=== PATIENT | female | born 1985 | race Caucasian/White ===

== ENCOUNTER 2018-10-02 15:26 | Observation (INO) ==
[2018-10-02] MEDS ORDERED: Ipratropium/Albuterol Neb 3 ML IH ONE (16:19)
[2018-10-02] MEDS ORDERED: predniSONE 20 MG TABLET PO ONE (16:19)
[2018-10-02 16:40] LABS: Basophils % 0.2 %; Eosinophils % 0.1 %; Hematocrit 42.6 % (35.3-44.9); Hemoglobin 14.2 g/dL (11.5-15.4); Immature Granulocytes % 0.5 % (0-4); Lymphocytes # 2.4 K/mcL (0.6-4.6); Lymphocytes % 21.8 %; Mean Corpuscular HGB Conc 33.3 g/dL (31.6-35.5); Mean Corpuscular Hemoglobin 29.5 pg (28.0-33.3); Mean Corpuscular Volume 88.4 fL (83.0-100.0); Mean Platelet Volume 9.9 fL (9.4-12.4); Monocytes % 8.7 %; Neutrophils # 7.5 K/mcL (1.6-8.9); Platelet Count 300 K/mcL (140-400); Red Blood Count 4.82 M/mcL (3.82-4.97); Red Cell Distribution Width 12.8 % (11.5-14.5); Segmented Neutrophils % 68.7 %
--- NOTE | 2018-10-02 16:46 | Emergency Department Note ---
Disposition Clinical Impression: Hypoxia Pneumonia Qualifiers: Pneumonia type: due to unspecified organism Laterality: bilateral Lung location: lower lobe of lung Qualified Code(s): J18.1 - Lobar pneumonia, unspecified organism Disposition: Admitted As Inpatient Condition: Undetermined Referrals: Hernandez Mason MD [Primary Care Provider] - Forms: ED Satisfaction Letter SOB HPI - General Chief Complaint: ED Shortness of Breath/Dyspnea Stated Complaint: CITLALI Time Seen by Provider: 10/02/18 16:05 Source: patient Mode of arrival: ambulatory Limitations: no limitations Nursing Notes Reviewed: Yes Vital Signs Reviewed: Yes - History of Present Illness 33-year-old female smoker arrives to the emergency Department complaint shortness breath, cough, congestion, sore throat over the course the past 7 days. Patient states is progressively worsened when she decided come to the emergency department. Patient denies any chest pain, abdominal pain, nausea, vomiting, diarrhea, hemoptysis, unilateral leg swelling, history DVT or PE, recent surgeries or immobilizations. The patient's rest comfortably in the room with normal pulse oximetry. The patient was initially tachycardic patient states that she ambulated and is only checked her heart rate from anything from the car. Patient states she felt very short of breath that time but states that she is feeling much better she is been sitting still. Patient denies any other complaints at this time. - Related Data Previous Rx's Medication Instructions Recorded Ibuprofen [Motrin] 600 mg PO Q8HR #20 tab 08/04/16 Guaifenesin/Dm/Pseudoephedrine 1 each PO QID 10 Days #40 tablet 09/24/18 [Capmist Dm Tablet] Allergies Allergy/AdvReac Type Severity Reaction Status Date / Time No Known Allergies Allergy Verified 10/02/18 15:31 All systems ED: reviewed and negative except as stated. Constitutional: Reports: chills, weakness. Denies: fever Eyes: Denies: vision change ENT ED: Reports: throat pain, congestion Cardiovascular: Denies: chest pain Respiratory: Reports: cough, dyspnea, sputum production. Denies: wheezes Gastrointestinal: Denies: abdominal pain, nausea, vomiting Genitourinary: Denies: urgency, dysuria Musculoskeletal: Denies: back pain Integumentary: Denies: rash Neurological: Denies: headache Past Medical History - Past Medical History Attestation: Yes The following information was validated with the patient. Source: patient, old records reviewed Medical history: Reports: no medical history, other Surgical history: Reports: , cholecystectomy, orthopedic, other (3 ankle surgeries), other (tubal) Psychiatric history: Reports: no psych history [employer] history: Reports: bilateral tubal ligation - Social History Smoking Status: Current every day smoker Smokeless Tobacco Status: No Alcohol use: Reports: none Drug use: Reports: none Physical Exam - General Limitations: no limitations General appearance: alert, in no apparent distress - Head Head exam: atraumatic, normocephalic, normal inspection - Eye Eye exam: Present: normal appearance, PERRL, EOMI - ENT ENT exam: normal exam, normal oropharynx, mucous membranes moist - Neck Neck exam: Present: normal inspection, full ROM, trachea midline - Chest Chest inspection: Present: normal inspection, symmetric chest wall rise - Respiratory Respiratory exam: Present: wheezes (mild scattered expiratory wheeze) - Cardiovascular Cardiovascular exam: Present: normal rhythm, tachycardia, normal heart sounds - Abdominal Exam Abdominal exam: Present: soft, Non-Tender. Absent: tenderness, distention, guarding, rebound, rigidity - Extremities Exam Extremities exam: Present: normal inspection, full ROM. Absent: tenderness, pedal edema - Neurological Exam Neurological exam: Present: alert, oriented X3 - Skin Skin exam: Present: warm, dry, intact, normal color Course - Reevaluation(s) Reevaluation #1: Patient received breathing treatment in the emergency department and her O2 saturations dropped to 89%. The patient remains fairly tachypneic. The patient had an elevated d-dimer. We will likely admit the patient to the hospital this time. We started the patient on Rocephin as well as azithromycin. The patient will receive a CTA of the chest here in the emergency department. Admission pending CTA. Time: 17:31 Vital Signs Temperature 97.7 F 10/02/18 15:29 Pulse Rate 103 10/02/18 15:29 Respiratory Rate 24 10/02/18 15:29 Blood Pressure 117/77 10/02/18 15:29 O2 Sat by Pulse Oximetry 92 10/02/18 15:29 Temperature 97.7 F 10/02/18 16:43 Pulse Rate 93 10/02/18 19:29 Respiratory Rate 24 10/02/18 19:29 Blood Pressure 127/85 10/02/18 19:29 O2 Sat by Pulse Oximetry 92 10/02/18 19:29 Oxygen Delivery Oxygen Delivery Room Air Shortness of Breath/Dyspnea - MDM Narrative Medical decision making narrative: Patient's workup in the emergency department demonstrates findings consistent with multilobar pneumonia. The patient was started on azithromycin and Rocephin here in the emergency department. Lactic acid is within normal limits. CTA of the chest demonstrates no pulmonary embolus. The patient will be admitted to the hospital as she is hypoxic on room air and fairly tachypneic. Patient made aware and agrees to plan. No further questions or concerns noted this time. Accepted by Dr. Moran. - Lab Data Lab results reviewed: Yes I reviewed the patient's lab results. Result diagrams: 10/02/18 16:25 10/02/18 16:25 Lab Results 10/02/18 10/02/18 10/02/18 Range/Units 16:23 16:25 16:25 WBC 10.9 (4.3-11.1) K/mcL RBC 4.82 (3.82-4.97) M/mcL Hgb 14.2 (11.5-15.4) g/dL Hct 42.6 (35.3-44.9) % MCV 88.4 (83.0-100.0) fL MCH 29.5 (28.0-33.3) pg MCHC 33.3 (31.6-35.5) g/dL RDW 12.8 (11.5-14.5) % Plt Count 300 (140-400) K/mcL MPV 9.9 (9.4-12.4) fL Immature Gran % 0.5 (0-4) % Seg Neutrophils % 68.7 % Lymphocytes % 21.8 % Monocytes % 8.7 % Eosinophils % 0.1 % Basophils % 0.2 % Neutrophils # 7.5 (1.6-8.9) K/mcL Lymphocytes # 2.4 (0.6-4.6) K/mcL Monocytes # 1.0 (0.0-1.3) K/mcL Eosinophils # 0.0 (0.0-0.6) K/mcL Basophils # 0.0 (0.0-0.2) K/mcL Reactive Lymphocytes Present A (Not Present) D-Dimer 579 H (0-500) ng/mLFEU Sodium 134 L (136-145) mEq/L Potassium 3.3 L (3.5-5.1) mEq/L Chloride 99 (98-107) mEq/L Carbon Dioxide 24 (23-29) mEq/L BUN 8 (6-20) mg/dL Creatinine 0.56 L (0.60-1.20) mg/dL Est GFR ( Amer) > 60 (> 60) Est GFR (Non-Af Amer) > 60 (> 60) BUN/Creatinine Ratio 14 (6-26) Glucose 105 (70-105) mg/dL Calculated Osmolality 277 L (280-300) Lactic Acid (0.5-2.2) mmol/L Calcium 8.6 (8.6-10.3) mg/dL Troponin I < 0.03 (< 0.04) ng/mL 10/02/18 Range/Units 18:01 WBC (4.3-11.1) K/mcL RBC (3.82-4.97) M/mcL Hgb (11.5-15.4) g/dL Hct (35.3-44.9) % MCV (83.0-100.0) fL MCH (28.0-33.3) pg MCHC (31.6-35.5) g/dL RDW (11.5-14.5) % Plt Count (140-400) K/mcL MPV (9.4-12.4) fL Immature Gran % (0-4) % Seg Neutrophils % % Lymphocytes % % Monocytes % % Eosinophils % % Basophils % % Neutrophils # (1.6-8.9) K/mcL Lymphocytes # (0.6-4.6) K/mcL Monocytes # (0.0-1.3) K/mcL Eosinophils # (0.0-0.6) K/mcL Basophils # (0.0-0.2) K/mcL Reactive Lymphocytes (Not Present) D-Dimer (0-500) ng/mLFEU Sodium (136-145) mEq/L Potassium (3.5-5.1) mEq/L Chloride (98-107) mEq/L Carbon Dioxide (23-29) mEq/L BUN (6-20) mg/dL Creatinine (0.60-1.20) mg/dL Est GFR ( Amer) (> 60) Est GFR (Non-Af Amer) (> 60) BUN/Creatinine Ratio (6-26) Glucose (70-105) mg/dL Calculated Osmolality (280-300) Lactic Acid 0.8 (0.5-2.2) mmol/L Calcium (8.6-10.3) mg/dL Troponin I (< 0.04) ng/mL - Radiology Data Radiology results reviewed: Yes I reviewed the patient's radiology results. Chest X-Ray 10/02/18 15:33 IMPRESSION: Bilateral lower lobe infiltrates suggesting a multifocal pneumonia D/ / Weston Perez MD / Weston Perez MD Interpreting Provider: Weston Perez MD Chest CTA 10/02/18 17:30 IMPRESSION: No evidence of pulmonary embolism. Scattered centrilobular nodules and small patchy consolidations in the bilateral lungs, likely related to pneumonia. D/ / Jose Manuel Tena MD / Jose Manuel Tena MD Interpreting Provider: Jose Manuel Tena MD - EKG Data EKG attestation: Yes I reviewed and interpreted this EKG. EKG results narrative: Heart rate 102 beats for minute. Sinus tachycardia. No ST elevation or ST depression noted. No acute changes exception of sinus tachycardia. Attestation Statement - Attestation Attestation: Resident Attestation: I examined this patient and my medical decision making was reviewed with the Resident Physician. I agree with the documented findings, disposition and treatment plan as described except to the extent set forth below. We independently had [id number] contact with the patient. Patient presents to ED for evaluation of worsening shortness of breath. Patient is diagnosed the cold last week. Patient is had 3 days of worsening cough and difficulty with breathing specifically with exertion. Patient does smoke. Has not been diagnosed COPD. The stone previously required inhalers. Mild tachypnea, associated wheezing to anterior lung durant, regular rhythm, tachycardia,and peripheral edema, abdomen soft nontender palpation without guarding or rebound. Evaluation for possible pneumonia. Breathing treatments and by mouth steroids given secondary to wheezing. Patient reevaluated and found to be 88% wall resting in bed without oxygen. Patient was placed on 2 L. CTA is pending. Patient will likely require admission secondary to hypoxia and pneumonia.
[2018-10-02 17:01] LABS: BUN/Creatinine Ratio 14 (6-26); Blood Urea Nitrogen 8 mg/dL (6-20); Calcium 8.6 mg/dL (8.6-10.3); Carbon Dioxide 24 mEq/L (23-29); Chloride 99 mEq/L (98-107); Glucose 105 mg/dL (70-105); Osmolality,Calculated 277 (280-300); Potassium 3.3 mEq/L (3.5-5.1); Sodium 134 mEq/L (136-145); eGFR For Non-African Americans > 60 (> 60)
[2018-10-02 17:02] LABS: Troponin I < 0.03 ng/mL (< 0.04)
[2018-10-02 17:04] LABS: Reactive Lymphocytes Present (Not Present)
[2018-10-02] MEDS ORDERED: Azithromycin 500 MG in D5% in Water 250 ML IVPB ONE (17:25)
[2018-10-02] MEDS ORDERED: cefTRIAXone 1,000 MG in Water for inj. (sterile) 20 ML 10 ML IVP ONE (17:25)
[2018-10-02] MEDS ORDERED: Isovue-370 500 ML INFUS..BTL IV ONE (17:30)
--- NOTE | 2018-10-02 21:35 | Internal Med History&Physical ---
Date of Encounter: 10/02/18 Time of Encounter: 21:33 Internal Medicine - H&P: HPI Chief complaint: SOB Admitted From: Home Plans for Post Hospital Care: Home History of present illness: Jaja Pinedo is a 33-year-old woman who reports no past medical history other than being an active smoker who comes emergency room complaining of over 1 week of upper respiratory symptoms as noted by poorly productive cough, sore throat, chest congestion and soreness, rhinorrhea and now difficulty breathing. She denied fever but reports having felt some chills. The emergency room she was noted to be slightly tachycardic and hypoxic on room air requiring supplemental oxygen initially. CT scan was done with findings concerning for multifocal patchy airspace disease as per my review. She was started on ceftriaxone and azithromycin and is now admitted for further care. On my assessment she states she feels somewhat better has no complaints at this time. She admits to smoking about less than a pack daily; stopped last week when she started feeling ill. 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 She reports her children at home also had URI symptoms around the same time hers started but they improved while she continued to progress till today. Past Med Surg Social Fam HX - Past Medical History Medical history: no medical history, other Psychiatric history: no psych history - Past Surgical History Surgical History: , cholecystectomy, orthopedic, other (3 ankle surgeries), other (tubal) Additional surgical history: right ankle surgery x3, 2 c-sections - Social History Smoking Status: Current every day smoker Smokeless Tobacco Status: No Alcohol use: none Drug use: none Internal Medicine - H&P: Meds No Known Home Drugs 10/02/18 [History] Allergy/AdvReac Type Severity Reaction Status Date / Time No Known Allergies Allergy Verified 10/02/18 15:31 All Systems PM: A 10-system review of systems was performed and is negative for pertinent findings except as documented above in the HPI. Family history reviewed and found noncontributory. - Constitutional Vitals: Temp Pulse Resp BP Pulse Ox 97.7 F 93 23 132/79 94 10/02/18 16:43 10/02/18 20:38 10/02/18 20:38 10/02/18 20:38 10/02/18 20:38 Exam: Vitals: Reviewed General: Obese white female lying comfortably in bed in no acute distress. Skin: Warm and supple. HEENT: Moist mucous membranes. No conjunctivae pallor. Neck: No lymphadenopathy. No JVD. No carotid bruits. No palpable thyroid. Chest: Normal thoracic expansion. Reduced breath sounds in both lung durant with fine raised auscultated in the right lung base. Heart: Normal S1 & S2; rhythmic. No rubs or murmurs. Abdomen: Non-distended, soft and non-tender to palpation. No peritoneal reaction. Extremities: No clubbing, cyanosis or edema. No calf tenderness. Normal distal pulses. Neurological: Awake, alert and oriented to person, place and time. No focal deficits. Psych: Affect appropriate. Internal Med - H&P Results - Labs CBC & Chem 7: 10/02/18 16:25 10/02/18 16:25 Labs: Short CBC 10/02/18 Range/Units 16:25 WBC 10.9 (4.3-11.1) K/mcL Hgb 14.2 (11.5-15.4) g/dL Hct 42.6 (35.3-44.9) % Plt Count 300 (140-400) K/mcL Neutrophils # 7.5 (1.6-8.9) K/mcL BMP 10/02/18 16:25 Sodium 134 L Potassium 3.3 L Chloride 99 Carbon Dioxide 24 BUN 8 Creatinine 0.56 L Glucose 105 Calcium 8.6 Cardiac Enzymes 10/02/18 Range/Units 16:25 Troponin I < 0.03 (< 0.04) ng/mL - Impressions ITS Impressions Chest X-Ray 10/02/18 15:33 IMPRESSION: Bilateral lower lobe infiltrates suggesting a multifocal pneumonia D/ / Weston Perez MD / Weston Perez MD Interpreting Provider: Weston Perez MD Chest CTA 10/02/18 17:30 IMPRESSION: No evidence of pulmonary embolism. Scattered centrilobular nodules and small patchy consolidations in the bilateral lungs, likely related to pneumonia. 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 Therefore in addition to the ceftriaxone/azithromycin started, will give 1 dose of vancomycin empirically. There is a risk of viral illness leading to superimposed bacterial pneumonias which appears to be the case. Send urine Legionella antigen and if she is able to expectorate, obtain sputum for culture. Provide symptomatic relief with nebulizer therapy overnight. Check MRSA surveillance screen. (2) Acute respiratory failure with hypoxia Current Visit: Yes Status: Acute Assessment and plan: Secondary to pneumonic process. Will provide supplemental oxygen as needed and monitor with oximetry. (3) Smoker Current Visit: Yes Status: Acute Assessment and plan: Counseled and resources made available. (4) DVT prophylaxis Current Visit: Yes Status: Acute Assessment and plan: Subcutaneous heparin ordered. - Time Spent With Patient Total time spent is greater than 50% in coordination of care (as documented) at patient's floor/unit and/or counseling patient: Greater than 35 minutes
[2018-10-02] MEDS: Ipratropium/Albuterol Neb 3 ML IH SCH (22:16)
[2018-10-02] MEDS: Ringers Solution, Lactated 1,000 ML IVC SCH (23:04)
[2018-10-03] MEDS: Ipratropium/Albuterol Neb 3 ML IH SCH ×5 (03:43→23:56)
[2018-10-03] MEDS: *HR* Heparin 5,000 UNIT/ML VIAL SQ SCH ×2 (05:29→17:23)
[2018-10-03] MEDS: GuaiFENesin Liq 200 MG/10 ML UDC PO PRN ×2 (05:34→19:15)
[2018-10-03] MEDS: Ringers Solution, Lactated 1,000 ML IVC SCH (08:57)
[2018-10-03] MEDS: cefTRIAXone 1,000 MG in 0.9 % Sodium Chloride Mini Bag 100 ML IVPB SCH (08:58)
[2018-10-03] MEDS: Azithromycin 500 MG in D5% in Water 250 ML IVPB SCH (08:58)
--- NOTE | 2018-10-03 11:18 | Internal Med Progress Note ---
Hospitalist Progress Note - Encounter Date of Encounter: 10/03/18 Time of Encounter: 11:17 - Subjective Interval History: patient seen and examined at bedside- Does not appear to be in any resp distress at this time- Denies any CP or SOB - Exam Vitals: Temp Pulse Resp BP Pulse Ox 98.1 F 74 18 116/80 93 10/03/18 07:34 10/03/18 07:34 10/03/18 07:34 10/03/18 07:34 10/03/18 08:45 Exam: Vitals: Reviewed General: Obese white female lying comfortably in bed in no acute distress. Skin: Warm and supple. HEENT: Moist mucous membranes. No conjunctivae pallor. Neck: No lymphadenopathy. No JVD. No carotid bruits. No palpable thyroid. Chest: Normal thoracic expansion. Reduced breath sounds in both lung durant with fine rales auscultated in the right lung base. Faint expiratory wheeze Heart: Normal S1 & S2; rhythmic. No rubs or murmurs. Abdomen: Non-distended, soft and non-tender to palpation. No peritoneal reaction. Extremities: No clubbing, cyanosis or edema. No calf tenderness. Normal distal pulses. Neurological: Awake, alert and oriented to person, place and time. No focal deficits. Psych: Affect appropriate. - Assessment and Plan (1) Acute respiratory failure with hypoxia Current Visit: Yes Status: Acute Assessment and Plan: Secondary to pneumonic process. Will provide supplemental oxygen as needed and monitor with oximetry. 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 Therefore in addition to the ceftriaxone/azithromycin started, will give 1 dose of vancomycin empirically. There is a risk of viral illness leading to superimposed bacterial pneumonias which appears to be the case. Send urine Legionella antigen and if she is able to expectorate, obtain sputum for culture. Provide symptomatic relief with nebulizer therapy overnight. Check MRSA surveillance screen. 10/03/2018 MRSA swab negative Legionella negative Influenza negative will check RIP cont with Ceftriaxone /azithromycin cont with duonebs- will give a steroid burst (3) Smoker Current Visit: Yes Status: Acute Assessment and Plan: Counseled and resources made available. (4) DVT prophylaxis Current Visit: Yes Status: Acute Assessment and Plan: Subcutaneous heparin ordered. - Time Spent with Patient Total time spent is greater than 50% in coordination of care (as documented) at patient's floor/unit and/or counseling patient: Internal Medicine: Result - Labs CBC & Chem 7: 10/02/18 16:25 10/02/18 16:25 Labs: Short CBC 10/02/18 Range/Units 16:25 WBC 10.9 (4.3-11.1) K/mcL Hgb 14.2 (11.5-15.4) g/dL Hct 42.6 (35.3-44.9) % Plt Count 300 (140-400) K/mcL Neutrophils # 7.5 (1.6-8.9) K/mcL BMP 10/02/18 16:25 Sodium 134 L Potassium 3.3 L Chloride 99 Carbon Dioxide 24 BUN 8 Creatinine 0.56 L Glucose 105 Calcium 8.6 Cardiac Enzymes 10/02/18 Range/Units 16:25 Troponin I < 0.03 (< 0.04) ng/mL - ABG Interpretation ABG results: PT/INR, D-dimer D-Dimer 579 ng/mLFEU (0-500) H 10/02/18 16:23 - Impressions Impressions Chest X-Ray 10/02/18 15:33 IMPRESSION: Bilateral lower lobe infiltrates suggesting a multifocal pneumonia D/ / Weston Perez MD / Weston Perez MD Interpreting Provider: Weston Perez MD Chest CTA 10/02/18 17:30 IMPRESSION: No evidence of pulmonary embolism. Scattered centrilobular nodules and small patchy consolidations in the bilateral lungs, likely related to pneumonia. D/ / Jose Manuel Tena MD / Jose Manuel Tena MD Interpreting Provider: Jose Manuel Tena MD Consult Discharge Plan - Plan Referrals: Hernandez Mason MD [Primary Care Provider] -
[2018-10-03 16:57] LABS: Adenovirus Not Detected (Not Detect); Bordetella Pertussis Not Detected (Not Detect); Chlamydophila pneumoniae Not Detected (Not Detect); Coronavirus 229E Not Detected (Not Detect); Coronavirus HKU1 Not Detected (Not Detect); Coronavirus NL63 Not Detected (Not Detect); Coronavirus OC43 Not Detected (Not Detect); Human Metapneumovirus Not Detected (Not Detect); Human Rhinovirus/Enterovirus Not Detected (Not Detect); Influenza A Subtype 2009 H1 Not Detected (Not Detect); Influenza A Untypeable Not Detected (Not Detect); Influenza B Not Detected (Not Detect); Mycoplasma pneumoniae Not Detected (Not Detect); Parainfluenza Virus 1 Not Detected (Not Detect); Parainfluenza Virus 2 Not Detected (Not Detect); Parainfluenza Virus 3 Not Detected (Not Detect); Parainfluenza Virus 4 Not Detected (Not Detect); Respiratory Syncytial Virus Not Detected (Not Detect)
[2018-10-03] MEDS ORDERED: Aminoglycoside Consult 1 EACH MC ONE (20:36)
[2018-10-04] MEDS: Ipratropium/Albuterol Neb 3 ML IH SCH ×5 (04:06→19:31)
[2018-10-04 04:13] LABS: Basophils % 0.2 %; Eosinophils % 0.1 %; Hematocrit 37.5 % (35.3-44.9); Immature Granulocytes % 0.9 % (0-4); Lymphocytes # 2.5 K/mcL (0.6-4.6); Lymphocytes % 29.2 %; Mean Corpuscular Hemoglobin 28.5 pg (28.0-33.3); Mean Corpuscular Volume 89.1 fL (83.0-100.0); Mean Platelet Volume 9.5 fL (9.4-12.4); Monocytes # 0.9 K/mcL (0.0-1.3); Monocytes % 10.6 %; Neutrophils # 5.1 K/mcL (1.6-8.9); Platelet Count 374 K/mcL (140-400); Red Blood Count 4.21 M/mcL (3.82-4.97); Red Cell Distribution Width 12.9 % (11.5-14.5)
[2018-10-04 04:29] LABS: BUN/Creatinine Ratio 16 (6-26); Blood Urea Nitrogen 10 mg/dL (6-20); Calcium 8.2 mg/dL (8.6-10.3); Carbon Dioxide 24 mEq/L (23-29); Chloride 111 mEq/L (98-107); Glucose 133 mg/dL (70-105); Osmolality,Calculated 295 (280-300); Potassium 3.1 mEq/L (3.5-5.1); Sodium 142 mEq/L (136-145); eGFR For Non-African Americans > 60 (> 60)
[2018-10-04 04:41] LABS: Platelet Estimate Normal (Normal); Reactive Lymphocytes Present (Not Present)
[2018-10-04] MEDS: *HR* Heparin 5,000 UNIT/ML VIAL SQ SCH ×2 (05:44→18:38)
[2018-10-04] MEDS ORDERED: predniSONE 20 MG TABLET PO SCH (09:00)
[2018-10-04] MEDS: cefTRIAXone 1,000 MG in 0.9 % Sodium Chloride Mini Bag 100 ML IVPB SCH (09:24)
[2018-10-04] MEDS: Azithromycin 500 MG in D5% in Water 250 ML IVPB SCH (09:25)
--- NOTE | 2018-10-04 11:36 | Internal Med Progress Note ---
Hospitalist Progress Note - Encounter Date of Encounter: 10/04/18 Time of Encounter: 11:36 - Subjective Interval History: patient seen and examined at bedside- patient appears to be in mild respiratory distress. She states she just walked back from the bathroom. Oxygen saturations are around 91-92% on room air-she does require oxygen supplementation and sats do improve to 98% on 2 L nasal cannula. - Exam Vitals: Temp Pulse Resp BP Pulse Ox 98.1 F 89 16 121/80 99 10/04/18 07:40 10/04/18 07:40 10/04/18 08:07 10/04/18 07:40 10/04/18 08:07 Exam: Vitals: Reviewed General: Obese white female lying comfortably in bed in no acute distress. Skin: Warm and supple. HEENT: Moist mucous membranes. No conjunctivae pallor. Neck: No lymphadenopathy. No JVD. No carotid bruits. No palpable thyroid. Chest: Normal thoracic expansion. Reduced breath sounds in both lung durant with fine rales auscultated in the right lung base. Faint expiratory wheeze Heart: Normal S1 & S2; rhythmic. No rubs or murmurs. Abdomen: Non-distended, soft and non-tender to palpation. No peritoneal reaction. Extremities: No clubbing, cyanosis or edema. No calf tenderness. Normal distal pulses. Neurological: Awake, alert and oriented to person, place and time. No focal defi cits. Psych: Affect appropriate. - Assessment and Plan (1) Acute respiratory failure with hypoxia Current Visit: Yes Status: Acute Assessment and Plan: Secondary to pneumonic process. Will provide supplemental oxygen as needed and monitor with oximetry. 10/03/2018 cont with oxygen as neede to maintain Spo2> 92% encourage patient to stop smoking 10/04/2018 Secondary to pneumonia-possible COPD component since patient is a smoker however she has never been diagnosed with COPD Patient appeared to be in mild respiratory distress this morning after ambulatin g to the bathroom. 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 Therefore in addition to the ceftriaxone/azithromycin started, will give 1 dose of vancomycin empirically. There is a risk of viral illness leading to superimposed bacterial pneumonias which appears to be the case. Send urine Legionella antigen and if she is able to expectorate, obtain sputum for culture. Provide symptomatic relief with nebulizer therapy overnight. Check MRSA surveillance screen. 10/03/2018 MRSA swab negative Legionella negative Influenza negative will check RIP cont with Ceftriaxone /azithromycin cont with duonebs- will give a steroid burst 10/04/2018 Versus all negative Legionella negative influenza negative respiratory infection panel was completed which was negative Continue with ceftriaxone and azithromycin Continue with DuoNeb's I will start patient on IV steroids overnight and monitor Obtain sputum culture (3) Smoker Current Visit: Yes Status: Acute Assessment and Plan: Counseled and resources made available. (4) DVT prophylaxis Current Visit: Yes Status: Acute Assessment and Plan: Subcutaneous heparin ordered. - Time Spent with Patient Total time spent is greater than 50% in coordination of care (as documented) at patient's floor/unit and/or counseling patient: Internal Medicine: Result - Labs CBC & Chem 7: 10/04/18 03:45 10/04/18 03:45 Labs: Short CBC 10/04/18 Range/Units 03:45 WBC 8.6 (4.3-11.1) K/mcL Hgb 12.0 D (11.5-15.4) g/dL Hct 37.5 (35.3-44.9) % Plt Count 374 (140-400) K/mcL Neutrophils # 5.1 (1.6-8.9) K/mcL BMP 10/04/18 03:45 Sodium 142 Potassium 3.1 L Chloride 111 H Carbon Dioxide 24 BUN 10 Creatinine 0.61 Glucose 133 H Calcium 8.2 L - ABG Interpretation ABG results: PT/INR, D-dimer D-Dimer 579 ng/mLFEU (0-500) H 10/02/18 16:23 Consult Discharge Plan - Plan Referrals: Hernandez Mason MD [Primary Care Provider] -
[2018-10-04] MEDS ORDERED: methylPREDNISolone 125 MG/2 ML VIAL IVP SCH (12:00)
--- NOTE | 2018-10-04 14:57 | Electrocardiograph Report ---
[address] [place], [place] [address] Test Date: 2018-10-02 Pat Name: Jaja Pinedo Department: 104 Room: 3B Gender: F Vender: RYLEY : 1985 Requested By: Chad Montano Order Number: [id number] Reading MD: Toney Miller Measurements Intervals Lulu Rate: 102 P: 59 MD: 133 QRS: 57 QRSD: 78 T: 53 QT: 338 QTc: 396 Interpretive Statements SINUS TACHYCARDIA Electronically Signed On 10-04-2018 14:55:51 EST by Toney Miller
[2018-10-04] MEDS ORDERED: Potassium Chloride 40 MEQ, Lidocaine 1% 2 ML in D5% in Water 500 ML IVPB ONE (18:41)
[2018-10-04] MEDS: methylPREDNISolone 125 MG/2 ML VIAL IVP SCH ×2 (18:43→23:46)
[2018-10-05] MEDS: Ipratropium/Albuterol Neb 3 ML IH SCH ×5 (00:29→15:46)
[2018-10-05] MEDS ORDERED: Acetaminophen 325 MG TABLET PO PRN (00:45)
[2018-10-05 05:40] LABS: Basophils % 0.3 %; Hematocrit 37.5 % (35.3-44.9); Hemoglobin 12.4 g/dL (11.5-15.4); Immature Granulocytes % 5.8 % (0-4); Lymphocytes % 14.8 %; Mean Corpuscular HGB Conc 33.1 g/dL (31.6-35.5); Mean Corpuscular Hemoglobin 29.4 pg (28.0-33.3); Mean Corpuscular Volume 88.9 fL (83.0-100.0); Mean Platelet Volume 9.9 fL (9.4-12.4); Monocytes # 0.2 K/mcL (0.0-1.3); Monocytes % 2.8 %; Neutrophils # 5.2 K/mcL (1.6-8.9); Platelet Count 413 K/mcL (140-400); Red Blood Count 4.22 M/mcL (3.82-4.97); Segmented Neutrophils % 76.3 %
[2018-10-05] MEDS: *HR* Heparin 5,000 UNIT/ML VIAL SQ SCH (05:42)
[2018-10-05] MEDS: methylPREDNISolone 125 MG/2 ML VIAL IVP SCH (05:42)
[2018-10-05 05:57] LABS: BUN/Creatinine Ratio 19 (6-26); Blood Urea Nitrogen 10 mg/dL (6-20); Calcium 9.1 mg/dL (8.6-10.3); Carbon Dioxide 23 mEq/L (23-29); Chloride 105 mEq/L (98-107); Glucose 215 mg/dL (70-105); Osmolality,Calculated 290 (280-300); Potassium 3.6 mEq/L (3.5-5.1); Sodium 137 mEq/L (136-145); eGFR For Non-African Americans > 60 (> 60)
[2018-10-05] MEDS: cefTRIAXone 1,000 MG in 0.9 % Sodium Chloride Mini Bag 100 ML IVPB SCH (09:42)
[2018-10-05] MEDS: Azithromycin 500 MG in D5% in Water 250 ML IVPB SCH (09:44)
[2018-10-05] MEDS ORDERED: Nicotine 21 MG PATCH.TD24 TD SCH (09:45)
--- NOTE | 2018-10-05 11:59 | Internal Med Progress Note ---
<Christopher Bynum P - Last Filed: 10/05/18 15:45> Hospitalist Progress Note - Encounter Date of Encounter: 10/05/18 Time of Encounter: 09:45 - Subjective Interval History: This is 33-year-old woman who is an active smoker comes to emergency room complaining of upper respiratory symptoms as noted by poorly productive cough, sore throat, chest congestion and soreness, rhinorrhea and now difficulty breathing , she was slightly tachycardic and hypoxic on room air requiring supplemental oxygen initially. She was not febrile but feeling chills.CT chest: No evidence of pulmonary embolism. scattered centrilobular nodules and small patchy consolidations in the bilateral lungs, likely related to pneumonia. Xray chest: Bilateral lower lobe infiltrates suggesting a multifocal pneumonia . Labs done in ED: Total white cell count was negative nasal MRSA was negative, all respi panel including Chlamydia pneumoniae was negative. The patient was admitted in inpatient with IV antibiotic azithromycin, ceftriaxone, Solu-Medrol , DuoNeb nebulization . Today during my bedside visit the patient was lying comfortably on the bed , she was not tachypneic while she was lying on the bed , she admitted dry cough but better than before, she further stated that she does have wheezing//shortness of breath while she walk a few meters. Her vitals are stable she is not febrile for last 24 hours. - Exam Vitals: Temp Pulse Resp BP Pulse Ox 97.8 F 79 16 151/85 89 10/05/18 07:53 10/05/18 07:53 10/05/18 07:32 10/05/18 07:53 10/05/18 07:53 Exam: General: Obese white female lying comfortably in bed in no acute distress. Skin: Warm and supple. HEENT: Moist mucous membranes. No conjunctivae pallor. Neck: No lymphadenopathy. No JVD. No carotid bruits. No palpable thyroid. Chest: Normal thoracic expansion. Reduced breath sounds in both lung durant with fine rales auscultated in the right lung base. Faint expiratory wheeze Heart: Normal S1 & S2; rhythmic. No rubs or murmurs. Abdomen: Non-distended, soft and non-tender to palpation. No peritoneal reaction. Extremities: No clubbing, cyanosis or edema. No calf tenderness. Normal distal pulses. Neurological: Awake, alert and oriented to person, place and time. No focal deficits. Psych: Affect appropriate. - Assessment and Plan (1) Multifocal pneumonia Current Visit: Yes Status: Acute Assessment and Plan: The patient has productive cough, trouble breathing, sore throat while she reported to hospital, exam finding : Expiratory wheezes with diminished breath sounds especially lower zones. Xray chest:Bilateral lower lobe infiltrates suggesting a multifocal pneumonia Ct chesT;Scattered centrilobular nodules and small patchy consolidations in the bilateral lungs, likely related to pneumonia. She was on 2 L oxygen, now she is on room air with saturation 90%. She is on IV antibiotic ceftriaxone, azithromycin, continuing nebulization with DuoNeb She was on Solu-Medrol and weekends to oral prednisone. Symptomatically improved compared to before. (2) Acute respiratory failure with hypoxia Current Visit: Yes Status: Acute Assessment and Plan: The patient is chronic smoker, presented with shortness of breath with minimal exertion and dry cough. She was not on home oxygen before. X-ray and CT chest showed multifocal pneumonia, that might be the cause of aggravated shortness of breath and hypoxia. Her sat was 92% with 2 L oxygen after admission. With IV antibiotic and resolution of the pneumonia, her symptom hypoxia has been getting better. (3) Smoker Current Visit: Yes Status: Acute Assessment and Plan: Recent is chronic smoker, smokes 1 pack per day, we have put nicotine patch and counseled about quitting smoking . (4) DVT prophylaxis Current Visit: Yes Status: Acute Assessment and Plan: She is on heparin 5000 units SQ 12hrly for DVT prophylaxis. - Time Spent with Patient Total time spent is greater than 50% in coordination of care (as documented) at patient's floor/unit and/or counseling patient: Internal Medicine: Result - Labs CBC & Chem 7: 10/05/18 04:10 10/05/18 04:10 Labs: Short CBC 10/05/18 Range/Units 04:10 WBC 6.8 (4.3-11.1) K/mcL Hgb 12.4 (11.5-15.4) g/dL Hct 37.5 (35.3-44.9) % Plt Count 413 H (140-400) K/mcL Neutrophils # 5.2 (1.6-8.9) K/mcL BMP 10/05/18 04:10 Sodium 137 Potassium 3.6 Chloride 105 Carbon Dioxide 23 BUN 10 Creatinine 0.53 L Glucose 215 H Calcium 9.1 - ABG Interpretation ABG results: PT/INR, D-dimer D-Dimer 579 ng/mLFEU (0-500) H 10/02/18 16:23 Consult Discharge Plan - Plan Referrals: Hernandez Mason MD [Primary Care Provider] - 10/14/18 3:30 pm Prescriptions: RX: Albuterol Sulfate [Proair Respiclick] 2 puff IH BID #1 aer.pow.ba RX: Azithromycin [Zithromax] 250 mg PO DAILY #2 tablet Cephalexin [Keflex] 500 mg PO TID #9 capsule RX: Nicotine Patch [Nicoderm] 21 mg TD DAILY #30 patch.td24 RX: predniSONE [PredniSONE] 40 mg PO BIDWM #18 tablet <Erik Medina - Last Filed: 10/05/18 16:10> Hospitalist Progress Note - Encounter Date of Encounter: 10/05/18 - Exam Vitals: Temp Pulse Resp BP Pulse Ox 97.6 F 77 15 151/82 92 10/05/18 15:36 10/05/18 15:36 10/05/18 15:36 10/05/18 15:36 10/05/18 15:36 - Assessment and Plan (1) Acute respiratory failure with hypoxia Current Visit: Yes Status: Acute (2) Reactive airway disease Current Visit: Yes Status: Acute (3) Multifocal pneumonia Current Visit: Yes Status: Acute (4) Smoker Current Visit: Yes Status: Acute (5) DVT prophylaxis Current Visit: Yes Status: Acute - Time Spent with Patient Total time spent is greater than 50% in coordination of care (as documented) at patient's floor/unit and/or counseling patient: Internal Medicine: Result - Labs CBC & Chem 7: 10/05/18 04:10 10/05/18 04:10 Labs: Short CBC 10/05/18 Range/Units 04:10 WBC 6.8 (4.3-11.1) K/mcL Hgb 12.4 (11.5-15.4) g/dL Hct 37.5 (35.3-44.9) % Plt Count 413 H (140-400) K/mcL Neutrophils # 5.2 (1.6-8.9) K/mcL BMP 10/05/18 04:10 Sodium 137 Potassium 3.6 Chloride 105 Carbon Dioxide 23 BUN 10 Creatinine 0.53 L Glucose 215 H Calcium 9.1 - ABG Interpretation ABG results: PT/INR, D-dimer D-Dimer 579 ng/mLFEU (0-500) H 10/02/18 16:23 - Attending Attestation I examined this patient and my medical decision-making was reviewed with the Resident Physician Dr. Bynum. I agree with the documented findings, disposition and treatment plan as described except to the extent set forth below. Ms. Pinedo is a 33 year old female who reports no past medical history other than being an active smoker who comes emergency room complaining of over 1 week of upper respiratory symptoms as noted by productive cough, sore throat, chest congestion and soreness. She did complaining about progressively worsening shortness of breath. CT scan was done with findings concerning for multifocal patchy airspace disease . Patient was admitted in the hospital and started on ceftriaxone and azithromycin. She did have acute hypoxic respiratory failure initially due to pneumonia. She also have diffuse wheezing due to reactive airway disease triggered by pneumonia. Patient was placed on high-dose IV steroids initially and required 2 lit O2 too. Now patient is off the oxygen and breathing comfortably on room air. We started tapering down her steroids. I did check ambulating pulse oxy which came back as 94 % on RA. So will d/c her home in stable condition today with PO abx and PO steroids. I did activities counselor the patient to quit smoking. Chest: Moderate wheezing, Diminished BS b/l, No crackles, no rales ____ <Erik Medina - Last Filed: 10/05/18 16:10> (2) Reactive airway disease Qualifiers: Asthma severity: mild Asthma persistence: intermittent Asthma complication type: with acute exacerbation Qualified Code(s): J45.21 - Mild intermittent asthma with (acute) exacerbation
[2018-10-05 15:40] VITALS: BP 151/82
--- NOTE | 2018-10-05 15:41 | Discharge Summary ---
- NOTES TO OUTPATIENT PROVIDER Notes to Outpatient Provider: Follow up with PCP in one week. Please quit smoking tobacco. Orders not resulted at time of discharge: Pending orders 10/02/18 18:01 Culture,Blood [BC] Stat 10/04/18 11:31 Sputum Culture [Culture,Sputum with Gram Stain] [] Routine Date of Encounter: 10/05/18 Time of Encounter: 15:36 - Discharge Diagnosis (1) Acute respiratory failure with hypoxia Priority: Primary Status: Acute (2) Reactive airway disease Priority: Primary Status: Acute Qualifiers: Asthma severity: mild Asthma persistence: intermittent Asthma complication type: with acute exacerbation Qualified Code(s): J45.21 - Mild intermittent asthma with (acute) exacerbation (3) Multifocal pneumonia Priority: Primary Status: Acute (4) Smoker Priority: Secondary Status: Acute (5) DVT prophylaxis Priority: Secondary Status: Acute Hospital course: Ms. Pinedo is a 33 year old female who reports no past medical history other than being an active smoker who comes emergency room complaining of over 1 week of upper respiratory symptoms as noted by productive cough, sore throat, chest congestion and soreness. She did complaining about progressively worsening shortness of breath. CT scan was done with findings concerning for multifocal patchy airspace disease . Patient was admitted in the hospital and started on ceftriaxone and azithromycin. She did have acute hypoxic respiratory failure initially due to pneumonia. She also have diffuse wheezing due to reactive airway disease triggered by pneumonia. Patient was placed on high-dose IV steroids initially and required 2 lit O2 too. Now patient is off the oxygen and breathing comfortably on room air. We started tapering down her steroids. I did check ambulating pulse oxy which came back as 94 % on RA. So will d/c her home in stable condition today with PO abx and PO steroids. I did herb counselor the patient to quit smoking - Time Spent with Patient Total time spent providing and/or coordinating discharge services: - Discharge Medications Prescriptions: Albuterol Sulfate [Proair Respiclick] 2 puff IH BID #1 aer.pow.ba Azithromycin [Zithromax] 250 mg PO DAILY #2 tablet Cephalexin [Keflex] 500 mg PO TID #9 capsule Nicotine Patch [Nicoderm] 21 mg TD DAILY #30 patch.td24 predniSONE [PredniSONE] 40 mg PO BIDWM #18 tablet Home Medications: Albuterol Sulfate [Proair Respiclick] 2 puff IH BID #1 aer.pow.ba 10/05/18 [Rx] Azithromycin [Zithromax] 250 mg PO DAILY #2 tablet 10/05/18 [Rx] Cephalexin [Keflex] 500 mg PO TID #9 capsule 10/05/18 [Rx] Nicotine Patch [Nicoderm] 21 mg TD DAILY #30 patch.td24 10/05/18 [Rx] predniSONE [PredniSONE] 40 mg PO BIDWM #18 tablet 10/05/18 [Rx] Allergies/Adverse Reactions: Allergy/AdvReac Type Severity Reaction Status Date / Time No Known Allergies Allergy Verified 10/02/18 15:31 Date of admission: 10/02/18 20:35 Primary care physician: Hernandez Mason - Constitutional Vitals: Temp Pulse Resp BP Pulse Ox 97.4 F L 101 16 143/85 92 10/05/18 12:11 10/05/18 12:11 10/05/18 12:11 10/05/18 12:11 10/05/18 12:11 General appearance: Present: cooperative, A&O X 3, no acute distress, answers questions appropriately Exam: Gen: Alert, awake, Oriented to time,place and person Chest: Diminished breath sounds B/L, Mild to moderate wheezing, No crackles, No rales Heart: S1S2+ RRR No murmurs Abd: Soft, NT, BS +, No organomegaly Ext: No edema, pulses are palpable, No calf tenderness Neuro : Benign findings Skin: No rash. - Patient Status Disposition: Home, Self-Care Condition: Good Overall status at discharge: patient is back to baseline - Discharge Instructions Follow Up With: Hernandez Mason MD [Primary Care Provider] - 10/14/18 3:30 pm - Diet and Activity Activity: increase activity as tolerated Diet: low salt diet
[2018-10-05] MEDS ORDERED: predniSONE 20 MG TABLET PO SCH (17:00)
[2018-10-06] MEDS ORDERED: Azithromycin 250 MG TABLET PO SCH (09:00)
== END 2018-10-05 17:05 | disposition home or self-care (01) ==
LOC: EMEROOARM 15:26 → 3BNU 15:26 → SUATTDRO 20:35 → 3BNU 21:15
PROVIDERS: ADMIT Internal Medicine; ATTEND Family Medicine